=== PATIENT | female | born 1965 | race Caucasian/White ===

== ENCOUNTER 2021-02-19 10:42 | Emergency (ER) | payer OTHER ==
[~2021-02-19 10:42] MED LIST: CLEOCIN HCL300 MG PO; NAPROSYN500 MG PO; Viscous lidocaine2% TOP
[2021-02-19 12:13] LABS: HEMOGLOBIN 10.4 gm/dl (12.3-15.3); RED BLOOD COUNT 3.28 M/UL (4.00-5.10); WHITE BLOOD COUNT 5.5 K/UL (4.5-11.0)
[2021-02-19 12:57] LABS: BUN/CREATININE RATIO 22 (0-10)
[2021-02-19] MEDS ORDERED: LASIX20 MG PO (14:53)
== END 2021-02-19 15:20 | disposition home or self-care (01) ==
LOC: ER1 10:42
PROVIDERS: Physician Assistant
DX: R60.0 Localized edema (principal); K21.9 Gastro-esophageal reflux disease without esophagitis; E78.5 Hyperlipidemia, unspecified; Z90.710 Acquired absence of both cervix and uterus; Z79.899 Other long term (current) drug therapy; F17.210 Nicotine dependence, cigarettes, uncomplicated
CPT/HCPCS: 71045; 80053; 83880; 85025; 99283

== ENCOUNTER 2021-03-02 09:50 | Emergency (ER) | payer OTHER ==
[~2021-03-02 09:50] MED LIST changes: +LASIX20 MG PO
[2021-03-02 11:28] LABS: HEMOGLOBIN 10.3 gm/dl (12.3-15.3); RED BLOOD COUNT 3.31 M/UL (4.00-5.10)
[2021-03-02] MEDS ORDERED: LASIX40 MG PO (12:26)
== END 2021-03-02 12:55 | disposition home or self-care (01) ==
LOC: ER1 09:50
PROVIDERS: Internal Medicine
DX: M79.89 Other specified soft tissue disorders (principal); R60.0 Localized edema; F17.210 Nicotine dependence, cigarettes, uncomplicated; Z90.710 Acquired absence of both cervix and uterus
CPT/HCPCS: 71046; 80053; 81001; 83880; 84484; 85025; 96374; 99283; J1940